=== PATIENT | female | born 1945 | race Caucasian/White ===

== ENCOUNTER 2017-04-01 14:17 | Emergency (ER) | payer OTHER, BC ==
[~2017-04-01] VITALS: Ht 152.4 cm; Wt 42.9 kg
[~2017-04-01 14:17] MED LIST: AMITRIPTYLINE H25 MG PO; ATIVAN0.5 MG PO; KEPPRA1000 MG; KEPPRA500 MG PO; MIRALAX17 GM PO; SEROQUEL XR50 MG PO; SEROQUEL50 MG PO
[2017-04-01 15:12] LABS: EOSINOPHIL (%) 2.4 % (0-5); EOSINOPHIL COUNT 0.2 K/uL (0-0.3); IMMATURE GRANULOCYTE (%) 0.2 % (0.0-0.7); INSTRUMENT ABS NEUTROPHIL CT 5.7 K/uL; LYMPHOCYTE COUNT 2.5 K/uL (1.0-2.8); MCH 27.5 PG (29.0-34.0); MCHC 31.6 G/DL (30.0-36.0); MCV 86.9 FL (83-99); MEAN PLAT.VOLUME 11.4 uM^3 (9.5-12.4); MONOCYTE (%) 7.1 % (3-12); MONOCYTE COUNT 0.7 K/uL (0-0.8); NEUTROPHIL (%) 62.5 % (45-76); NEUTROPHIL COUNT 5.7 K/uL (1.8-6.4); PLATELET COUNT 323 K/uL (156-360); RBC DIS.WIDTH-CV 14.6 % (11.8-14.6); RBC DIS.WIDTH-SD 46.5 % (39-53); RED BLOOD COUNT 4.95 M/uL (3.80-5.20); WHITE BLOOD COUNT 9.1 K/uL (4.1-10.2)
[2017-04-01 17:28] VITALS: BP 106/62
== END 2017-04-01 18:04 | disposition home or self-care (01) ==
LOC: EME → EDBD 14:17 → EME 18:04
PROVIDERS: Emergency Medicine
DX: K92.2 Gastrointestinal hemorrhage, unspecified (principal); G30.9 Alzheimer's disease, unspecified; F02.80 Dementia in other diseases classified elsewhere, unspecified severity, without behavioral disturbance, psychotic disturbance, mood disturbance, and anxiety; K21.9 Gastro-esophageal reflux disease without esophagitis
CPT/HCPCS: 80053; 83605; 85025; 85610; 85730; 86850; 86900; 86901; 99281; 99283